=== PATIENT | female | born 1980 | race Caucasian/White ===

== ENCOUNTER 2016-12-17 09:28 | Inpatient (IN) | payer OTHER ==
[2016-12-17] VITALS (13 sets, daily range): BP systolic 116–165; BP diastolic 66–94
[~2016-12-17] VITALS: Ht 157.5 cm; Wt 75.2 kg
[~2016-12-17 09:28] MED LIST: CALCIUM PO; MONODOX100 MG PO; MOTRIN800 MG PO; PRENATAL TABLE1 EAC3 PO; VIT C PO
[2016-12-17 11:30] LABS: EOSINOPHIL (%) 0.3 % (0-5); HEMATOCRIT 39.7 % (36.0-46.0); IMMATURE GRANULOCYTE (%) 0.3 % (0.0-0.7); INSTRUMENT ABS NEUTROPHIL CT 7.7 K/uL; LYMPHOCYTE COUNT 1.3 K/uL (1.0-2.8); MCH 30.4 PG (29.0-34.0); MCHC 32.5 G/DL (30.0-36.0); MCV 93.4 FL (83-99); MEAN PLAT.VOLUME 12.6 uM^3 (9.5-12.4); MONOCYTE (%) 7.2 % (3-12); MONOCYTE COUNT 0.7 K/uL (0-0.8); NEUTROPHIL (%) 78.6 % (45-76); NEUTROPHIL COUNT 7.7 K/uL (1.8-6.4); PLATELET COUNT 170 K/uL (156-360); RBC DIS.WIDTH-CV 13.3 % (11.8-14.6); RED BLOOD COUNT 4.25 M/uL (3.80-5.20); WHITE BLOOD COUNT 9.8 K/uL (4.1-10.2)
[2016-12-17 11:49] LABS: CHLORIDE 108 mEq/L (99-109); POTASSIUM 4.2 mEq/L (3.7-5.4); SODIUM 141 mEq/L (136-147)
[2016-12-17 11:51] LABS: GLUCOSE 88 mg/dL (70-99)
[2016-12-17 11:53] LABS: ANION GAP 11 MEQ/L (2-14); TOTAL BILIRUBIN 0.4 mg/dL (0.0-1.0)
[2016-12-17 11:55] LABS: ALKALINE PHOSPHATASE 193 IU/L (3-129); GFR ESTIMATE (CALCULATED) > 59 mL/min/
[2016-12-17 11:56] LABS: UREA NITROGEN (BUN) 15 mg/dL (9-23)
[2016-12-17 11:58] LABS: URIC ACID 6.6 mg/dL (3.1-9.2)
[2016-12-17 12:06] LABS: DRSB INTERNAL CONTROL PASS; PROBE CHECK PASS; SPECIMEN PROCESSING CONTROL PASS
[2016-12-17 12:31] LABS: LACTATE DEHYDROGENASE 160 IU/L (20-246); SAMPLE HEMOLYSIS CHECK 0; SAMPLE ICTERIC CHECK 0; SAMPLE LIPEMIA CHECK 0
[2016-12-17 13:27] LABS: UR CREATININE CONCENTRATION 70.8 MG/DL
[2016-12-18 06:58] LABS: EOSINOPHIL (%) 0.7 % (0-5); EOSINOPHIL COUNT 0.1 K/uL (0-0.3); HEMATOCRIT 30.3 % (36.0-46.0); IMMATURE GRANULOCYTE (%) 0.3 % (0.0-0.7); INSTRUMENT ABS NEUTROPHIL CT 9.3 K/uL; LYMPHOCYTE COUNT 1.9 K/uL (1.0-2.8); MCH 30.6 PG (29.0-34.0); MCV 92.7 FL (83-99); MONOCYTE (%) 8.7 % (3-12); MONOCYTE COUNT 1.1 K/uL (0-0.8); NEUTROPHIL COUNT 9.3 K/uL (1.8-6.4); PLATELET COUNT 134 K/uL (156-360); RBC DIS.WIDTH-CV 13.3 % (11.8-14.6); WHITE BLOOD COUNT 12.4 K/uL (4.1-10.2)
[2016-12-18 07:12] LABS: RED BLOOD COUNT 3.27 M/uL (3.80-5.20)
[2016-12-18 07:30] VITALS: BP 128/67
[2016-12-18 14:48] VITALS: BP 125/75
[2016-12-18 23:00] VITALS: BP 140/74
[2016-12-19 07:45] VITALS: BP 113/65
[2016-12-19] MEDS ORDERED: IBUPROFEN800 MG PO (11:54)
[2016-12-19] MEDS ORDERED: Tylenol Extra Streng PO (11:54)
[2016-12-19 14:30] VITALS: BP 133/86
== END 2016-12-19 18:27 | disposition home or self-care (01) | DRG 775 ==
LOC: LDRP-OP → 2WEST 09:29
PROVIDERS: Advanced Practice Midwife
DX: O60.14X1 Preterm labor third trimester with preterm delivery third trimester, fetus 1 (principal); O42.013 Preterm premature rupture of membranes, onset of labor within 24 hours of rupture, third trimester; O70.0 First degree perineal laceration during delivery; O76 Abnormality in fetal heart rate and rhythm complicating labor and delivery; O69.82X1 Labor and delivery complicated by other cord entanglement, without compression, fetus 1; O09.523 Supervision of elderly multigravida, third trimester; Z3A.36 36 weeks gestation of pregnancy; Z37.0 Single live birth; O99.214 Obesity complicating childbirth; Z68.30 Body mass index [BMI] 30.0-30.9, adult; E66.9 Obesity, unspecified
CPT/HCPCS: 80053; 82570; 83615; 84156; 84550; 85025; 86850; 86900; 86901; 87081; 87653; C1755; J2540; J7120